=== PATIENT | female | born 2000 | race Two or more races ===

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

== ENCOUNTER 2019-05-13 22:36 | Emergency (ER) | payer OTHER ==
[2019-05-13] MEDS ORDERED: CLINDAMYCIN HCL 150 MG CAPSULE PO ONE (23:53)
--- NOTE | 2019-05-13 23:55 | ER Document Report ---
ED General - General Chief Complaint: Abscess Stated Complaint: ABCESS Time Seen by Provider: 05/13/19 23:35 Notes: Patient is a pleasant 18-year-old female presents with complaint of a pilonidal abscess. She states she has had one in the past but it ruptured on its own and drained. Tonight she had another one which partially ruptured and started draining but she still feels like pain and pressure in the area of the abscess. No fevers. No vomiting. No other complaints at this time. Not a diabetic. TRAVEL OUTSIDE OF THE [place] IN LAST 30 DAYS: No - Related Data Allergies/Adverse Reactions: Penicillins Allergy (Verified 05/13/19 22:42) Past Medical History - Social History Smoking Status: Never Smoker Frequency of alcohol use: None Drug Abuse: None Family History: Reviewed & Not Pertinent Renal/ Medical History: Denies: Hx Peritoneal Dialysis Review of Systems - Review of Systems Notes: My Normal Review Basic REVIEW OF SYSTEMS: CONSTITUTIONAL : Denies fever, chills, or sweats. Denies recent illness. RESPIRATORY: Denies cough, cold, or chest congestion. Denies shortness of breath, difficulty breathing, or wheezing. GASTROINTESTINAL: Denies abdominal pain. Denies nausea, vomiting, or diarrhea. GENITOURINARY: Denies difficulty urinating, painful urination, burning, frequency, or blood in urine. MUSCULOSKELETAL: Denies neck or back pain or joint pain or swelling. SKIN: Pilonidal abscess NEUROLOGICAL: Denies altered mental status or loss of consciousness. Denies headache. Denies weakness or paralysis or loss of use of either side. Denies problems with gait or speech. Denies sensory or motor loss. ALL OTHER SYSTEMS REVIEWED AND NEGATIVE. Physical Exam - Vital signs Vitals: Temp Pulse Resp BP Pulse Ox 98.4 F 98 H 18 120/60 96 05/13/19 22:41 05/13/19 22:41 05/13/19 22:41 05/13/19 22:41 05/13/19 22:41 - Notes Notes: General Appearance: Well nourished, alert, cooperative, no acute distress, mild obvious discomfort. Vitals: reviewed, See vital signs table. Eyes: PERRL, EOMI, Conjuctiva clear Lungs: No wheezing, No rales, No rhonci, No accessory muscle use, good air exchange bilaterally. Heart: Normal rate, Regular rythm, No murmur, no rub Extremities: Patient's has a pilonidal abscess superior gluteal cleft. He has a small hole that spontaneously occurred that is draining some pus. Patient has just localized erythema. Area of induration is proximal 3 cm. Skin: warm, dry, appropriate color, no rash Neuro: speech clear, oriented x 3, normal affect, responds appropriately to questions. Course - Re-evaluation Re-evalutation: 05/15/19 06:52 The small pinpoint hole that the patient was draining purulent drainage from was further incised and extended. I was able to drain the pus out and flush the abscess void with saline. I then placed a small amount of packing. Patient placed on antibiotics. She is encouraged to return to ER if she has recurrent swelling, spreading redness, fevers, or if she feels unwell. Patient agrees with plan will be discharged home. Dictation of this chart was performed using voice recognition software; therefore, there may be some unintended grammatical errors. - Vital Signs Vital signs: Temp Pulse Resp BP Pulse Ox 98.2 F 83 16 109/61 100 05/14/19 00:38 05/14/19 00:38 05/14/19 00:38 05/14/19 00:38 05/14/19 00:38 Procedures - Incision and Drainage pilonidal Type: Simple Blade size: Other - iris scissors I&D procedure: Chlorprep applied Incision Method: Incision made by scalpel - iris scissors Amount/type of drainage: moderate amount of purulent drainage Discharge - Discharge Clinical Impression: Pilonidal abscess Condition: Good Disposition: HOME, SELF-CARE Additional Instructions: We did drain your abscess. We placed a small amount of packing in the abscess. This will eventually come out on its own. Please return to the ER or follow-up with your doctor in 3 days for reevaluation. Every time you have a bowel movement you should then go into the shower and gently wash area with soap and water. Please return to the ER immediately if you have recurrence of swelling, feel that you have recurrence of the abscess, fevers, or spreading redness along the area. Please take the antibiotic as prescribed. Stop taking the antibiotic and return to the ER if you develop diarrhea. Prescriptions: RX: Clindamycin HCl [Cleocin 150 mg Capsule] 300 mg PO Q6 #56 capsule
[2019-05-14 00:39] VITALS: BP 109/61
== END 2019-05-14 00:30 | disposition home or self-care (01) ==
LOC: ER 22:36
DX: L05.01 Pilonidal cyst with abscess (principal); Z88.0 Allergy status to penicillin
CPT/HCPCS: 99282; 10080; A6266